=== PATIENT | female | born 1935 | race Caucasian/White ===

== ENCOUNTER 2018-05-07 12:16 | Emergency (ER) | payer OTHER ==
[2018-05-07 12:27] VITALS: BMI 17.7
[2018-05-07] MEDS ORDERED: FAMOTIDINE 20 MG/50 ML IVPB 20 MG/50 ML MG IVPB ONE ×2 (12:52→13:49)
[2018-05-07] MEDS ORDERED: ONDANSETRON 4 MG/2 ML VIAL IVPB ONE (12:52)
--- NOTE | 2018-05-07 13:10 | PDOC ---
History of Present Illness - General Chief Complaint: Nausea/Vomiting Stated Complaint: NAUSEA/VOMITING Time Seen by Provider: 05/07/18 12:31 - History of Present Illness Initial Comments: 05/07/18 13:06 82 F with h/o HTN, HLD presents to ED with N+V. Pt states that she awoke this morning feeling nauseous. Pt denies CP/SOB. Denies abdominal pain. Denies F/C. Pt states that on her way to the hospital, she vomited 3 times in the car. Denies any blood in her vomit. Pt denies diarrhea. Pt states that after vomiting , she feels much better. Currently denies any complaints. Past History - Past Medical History Allergies/Adverse Reactions: Allergies Allergy/AdvReac Type Severity Reaction Status Date / Time No Known Allergies Allergy Verified 04/11/15 21:12 Home Medications: Ambulatory Orders Amlodipine Besylate [Norvasc -] 10 mg PO DAILY 08/29/13 Atenolol [Tenormin -] 50 mg PO DAILY 08/29/13 Losartan Potassium [Cozaar] 50 mg PO DAILY 08/29/13 Naproxen [Naprosyn -] 500 mg PO BID #14 tablet 04/12/15 Cancer: Yes (COLON) COPD: No HTN: Yes - Surgical History GI Surgery: Yes (colon 14 yrs ago) - Immunization History Immunization Up to Date: Yes - Suicide/Smoking/Psychosocial Hx Smoking History: Never smoked Hx Alcohol Use: No Drug/Substance Use Hx: No Substance Use Type: None Review of Systems - Review of Systems Comments:: 05/07/18 13:07 "GENERAL/CONSTITUTIONAL: No fever or chills. No weakness. HEAD, EYES, EARS, NOSE AND THROAT: No change in vision. No ear pain or discharge. No sore throat. CARDIOVASCULAR: No chest pain or shortness of breath. RESPIRATORY: No cough, wheezing, or hemoptysis. GASTROINTESTINAL: + nausea, + vomiting, no diarrhea or constipation. GENITOURINARY: No dysuria, frequency, or change in urination. MUSCULOSKELETAL: No joint or muscle swelling or pain. No neck or back pain. SKIN: No rash NEUROLOGIC: No headache, vertigo, loss of consciousness, or change in strength/ sensation. ENDOCRINE: No increased thirst. No abnormal weight change. HEMATOLOGIC/LYMPHATIC: No anemia, easy bleeding, or history of blood clots. ALLERGIC/IMMUNOLOGIC: No hives or skin allergy. *Physical Exam - Vital Signs Last Vital Signs Temp Pulse Resp BP Pulse Ox 98.1 F 89 16 134/66 96 05/07/18 12:23 05/07/18 12:23 05/07/18 12:23 05/07/18 12:23 05/07/18 12:23 - Physical Exam Comments: 05/07/18 13:08 GENERAL: Awake, alert, and fully oriented, in no acute distress. HEAD: No signs of trauma EYES: PERRLA, EOMI, sclera anicteric, conjunctiva clear ENT: Auricles normal inspection, hearing grossly normal, nares patent, oropharynx clear without exudates. Moist mucosa NECK: Nontender, no stepoffs, Normal ROM, supple, no lymphadenopathy, JVD, or masses LUNGS: Breath sounds equal, clear to auscultation bilaterally. No wheezes, and no crackles HEART: Regular rate and rhythm, normal S1 and S2, no murmurs, rubs or gallops ABDOMEN: Soft, nontender, normoactive bowel sounds. No guarding, no rebound. No masses EXTREMITIES: Normal range of motion, no edema. No clubbing or cyanosis. No cords, erythema, or tenderness NEUROLOGICAL: Cranial nerves II through XII intact. 5/5 strength and sensation in all extremities, Normal speech, normal gait, normal cerebellar function SKIN: Warm, Dry, normal turgor, no rashes or lesions noted. Heart Score/ECG Review - History History: Slightly suspicious - Electrocardiogram EKG: Normal - Age Age: >/= 65 - Risk Factors Risk Factors Heart Score: Yes Hx Hypercholesterolemia, Yes Hx Hypertension Based on the list above the patient has:: 1-2 risk factors - Troponin Troponin: </= normal limit - Score Heart Score - Total: 3 - ECG Impressions Comment:: 05/07/18 15:10 NSR, no PEDRO/STDs, no TWIs, axis wnl, intervals wnl, rate 75 ED Treatment Course - LABORATORY CBC & Chemistry Diagram: 05/07/18 13:16 05/07/18 13:16 Medical Decision Making - Medical Decision Making 05/07/18 13:08 82 F with N+V, now resolved. Pt with benign abdomen and no abdominal pain, making acute intraabdominal process unlikely. Pt has no CP/SOB but will r/o ACS with serial trops. Suspect gastritis vs gastroenteritis. - Labs, trop - EKG - Pepcid/zofran 05/07/18 15:10 Labs wnl, trop negative x1 Pt continues to feel well. 05/07/18 17:21 Trop negative x2 Repeat exam normal, no abdominal tenderness. Pt is well appearing, with normal vitals. Clinically stable for DC at this time. I discussed the physical exam findings, ancillary test results and final diagnoses with the patient. I answered all of the patient's questions. The patient was satisfied with the care received and felt comfortable with the discharge plan and treatment plan. The patient agrees to follow up with the primary care physician within 24-72 hours. *DC/Admit/Observation/Transfer Diagnosis at time of Disposition: Nausea and vomiting - Discharge Dispostion Disposition: HOME Condition at time of disposition: Stable - Referrals Referrals: Twila Ballard MD [Primary Care Provider] - - Patient Instructions Printed Discharge Instructions: DI for Nausea -- Adult, DI for Vomiting -- Adult Additional Instructions: Your labwork and EKG today were normal. However, you should still follow up with your primary doctor for further evaluation. Make an appointment within 1 week. If you experience recurrent nausea, vomiting, abdominal pain, chest pain, shortness of breath, or any other concerning symptoms, return to the ER immediately. - Post Discharge Activity - Attestations Physician Attestion: 05/07/18 16:56 I, Dr. Adrian Estevez MD, attest that this document has been prepared under my direction and personally reviewed by me in its entirety. I further attest, that it accurately reflects all work, treatment, procedures and medical decision -making performed by me.
[2018-05-07] MEDS ORDERED: ONDANSETRON 4 MG/2 ML VIAL ONE (13:17)
[2018-05-07 13:26] LABS: BASO % 0.3 % (0-2.0); HEMATOCRIT 40.6 % (32.4-45.2); HEMOGLOBIN 13.7 GM/dL (10.7-15.3); LYMPH % 6.1 % (8-40); MCHC 33.7 g/dl (32.0-36.0); MEAN CELL VOLUME 86.1 fl (80-96); MEAN PLT VOLUME 10.3 fl (7.5-11.1); MONO % 4.2 % (3.8-10.2); NEUT % 89.4 % (42.8-82.8); PLATELET COUNT 223 K/MM3 (134-434); RBC 4.71 M/mm3 (3.60-5.2); RDW 13.8 % (11.6-15.6); WHITE BLOOD COUNT 8.1 K/mm3 (4.0-10.0)
[2018-05-07 14:02] LABS: ALBUMIN 3.9 g/dl (3.4-5.0); ANION GAP 11 MMOL/L (8-16); BLOOD UREA NITROGEN 22 mg/dL (7-18); CALCIUM 9.6 mg/dL (8.5-10.1); CHLORIDE 99 mmol/L (98-107); CO2 30 mmol/L (21-32); CREATININE 0.7 mg/dL (0.55-1.3); GLUCOSE,RANDOM 125 mg/dL (74-106); LIPASE 130 U/L (73-393); POTASSIUM 3.7 mmol/L (3.5-5.1); SGOT/AST 13 U/L (15-37); SGPT/ALT 24 U/L (13-61); SODIUM 140 mmol/L (136-145); TOT PROT 6.9 g/dl (6.4-8.2)
[2018-05-07 14:07] LABS: ALK PHOS 68 U/L (45-117); BILIRUBIN,TOTAL 0.6 mg/dL (0.2-1)
--- NOTE | 2018-05-07 16:15 | EKG ---
Test Reason : Blood Pressure : / mmHG Vent. Rate : 074 BPM Atrial Rate : 074 BPM P-R Int : 124 ms QRS Dur : 090 ms QT Int : 440 ms P-R-T Axes : 050 030 070 degrees QTc Int : 488 ms POOR DATA QUALITY, INTERPRETATION MAY BE ADVERSELY AFFECTED NORMAL SINUS RHYTHM NONSPECIFIC ST ABNORMALITY ABNORMAL ECG WHEN COMPARED WITH ECG OF 14-NOV-2014 09:28, NO SIGNIFICANT CHANGE WAS FOUND Confirmed by Benigno Sandoval ([id number]) on 05/07/2018 4:15:22 PM Referred By: Confirmed By:Benigno Sandoval
[2018-05-07 17:09] VITALS: BP 127/64; PULSE 77; TEMP 98.6
== END 2018-05-07 17:31 | disposition home or self-care (01) ==
LOC: JER 12:16
PROC: 3E033GC Introduction of Other Therapeutic Substance into Peripheral Vein, Percutaneous Approach (ICD-10-PCS; principal; 2018-05-07)
DX: R11.2 Nausea with vomiting, unspecified (principal)
CPT/HCPCS: 36415; 80053; 82550; 83690; 84484; 85025; 93005; 93010; 96365; 96375; 99282-25

== ENCOUNTER 2024-10-14 15:28 | Inpatient (IN) | payer OTHER ==
[2024-10-14 16:43] VITALS: BMI 17.2
[2024-10-14] MEDS ORDERED: ACETAMINOPHEN 325 MG TABLET (FP) ONE (16:44)
[2024-10-14] MEDS: ACETAMINOPHEN 500 MG TABLET (FP) PO ONE (16:49)
[2024-10-14 17:14] LABS: HEMATOCRIT 41.9 % (32.4-45.2); HEMOGLOBIN 13.5 GM/dL (10.7-15.3); MCH 27.9 pg (25.7-33.7); MCHC 32.3 g/dl (32.0-36.0); MEAN CELL VOLUME 86.5 fl (80-96); MEAN PLT VOLUME 9.8 fl (7.5-11.1); PLATELET COUNT 231 10^3/uL (134-434); RBC 4.84 M/mm3 (3.60-5.2); RDW 14.4 % (11.6-15.6); WHITE BLOOD COUNT 15.1 K/mm3 (4.0-10.0)
[2024-10-14 17:22] LABS: INR 1.12 (0.83-1.09); PROTHROMBIN TIME (PATIENT) 12.2 SEC (9.7-13.0)
[2024-10-14 17:24] LABS: ACTIVATED PTT 31.2 SECONDS (25.2-36.5)
[2024-10-14 17:34] LABS: ALBUMIN 3.9 g/dl (3.4-5.0); BLOOD UREA NITROGEN 20.5 mg/dL (7-18)
[2024-10-14 17:37] LABS: CREATININE 0.6 mg/dL (0.55-1.3)
[2024-10-14 17:38] LABS: BILIRUBIN,TOTAL 0.6 mg/dL (0.2-1)
[2024-10-14] MEDS: ROPIVACAINE HCL 0.5% 30ML VIAL NR ONE (19:05)
[2024-10-14] MEDS ORDERED: DIPHTH,PERTUSS(ACELL),TET 0.5 ML DISP.SYRIN IM ONE (19:10)
[2024-10-14] MEDS: DIPHTH,PERTUSS(ACELL),TET 0.5 ML DISP.SYRIN IM ONE (19:21)
[2024-10-14] MEDS ORDERED: MORPHINE SULFATE 2 MG/ML SYRINGE IVPUSH PRN (20:26)
[2024-10-14] MEDS: LACTATED RINGERS SOLUTION 1,000 ML/1,000 ML INFUS.BAG IV SCH (22:31)
[2024-10-14] MEDS: DEXTROSE 5%-NORMAL SALINE 1,000 ML IV SCH (23:56)
[2024-10-15] MEDS: amLODIPine BESYLATE 10 MG TABLET (FP) PO SCH (09:11)
[2024-10-15] MEDS: ACETAMINOPHEN 1000 MG/100 ML BAG IVPB PRN (09:11)
[2024-10-15] MEDS: LOSARTAN POTASSIUM 50 MG TABLET PO SCH (09:11)
[2024-10-15] MEDS ORDERED: ONDANSETRON 4 MG/2 ML VIAL IVPUSH PRN ×2 (09:47→13:31)
[2024-10-15 09:55] LABS: HEMATOCRIT 38.9 % (32.4-45.2); HEMOGLOBIN 13.2 GM/dL (10.7-15.3); MCHC 33.9 g/dl (32.0-36.0); MEAN CELL VOLUME 85.5 fl (80-96); MEAN PLT VOLUME 9.9 fl (7.5-11.1); PLATELET COUNT 225 10^3/uL (134-434); RBC 4.55 M/mm3 (3.60-5.2); WHITE BLOOD COUNT 10.1 K/mm3 (4.0-10.0)
[2024-10-15 10:00] LABS: INR 1.25 (0.83-1.09); PROTHROMBIN TIME (PATIENT) 13.8 SEC (9.7-13.0)
[2024-10-15] MEDS ORDERED: ceFAZolin SODIUM 1 GM VIAL ONE ×2 (10:10→13:13)
[2024-10-15 10:30] LABS: POTASSIUM 3.6 mmol/L (3.5-5.1)
[2024-10-15 10:33] LABS: ALBUMIN 3.5 g/dl (3.4-5.0); BLOOD UREA NITROGEN 13.5 mg/dL (7-18); CALCIUM 8.7 mg/dL (8.5-10.1)
[2024-10-15 10:37] LABS: CREATININE 0.6 mg/dL (0.55-1.3)
[2024-10-15 10:38] LABS: BILIRUBIN,TOTAL 0.9 mg/dL (0.2-1); TOT PROT 6.5 g/dl (6.4-8.2)
[2024-10-15] MEDS ORDERED: VANCOMYCIN 1,000 MG VIAL (RESTRICTED TO ID ONLY) ONE (10:56)
[2024-10-15] MEDS ORDERED: BUPIVACAINE HCL/PF 0.5% (5MG/ML) 10 ML VIAL ONE (11:56)
[2024-10-15] MEDS ORDERED: PROPOFOL 20 ML ONE (11:56)
[2024-10-15] MEDS: ceFAZolin SODIUM 1 GM VIAL IVPB ONE (12:27)
[2024-10-15] MEDS ORDERED: TRANEXAMIC ACID 1000 MG/10 ML VIAL ONE (13:13)
[2024-10-15] MEDS ORDERED: DEXTROSE 5%-NORMAL SALINE 1,000 ML IV SCH (13:31)
[2024-10-15] MEDS ORDERED: ACETAMINOPHEN 1000 MG/100 ML BAG IVPB PRN (13:31)
[2024-10-15] MEDS ORDERED: ONDANSETRON 4 MG/2 ML VIAL ONE (13:41)
[2024-10-15] MEDS: ONDANSETRON 4 MG/2 ML VIAL IVPUSH PRN (13:42)
[2024-10-15] MEDS: LACTATED RINGERS SOLUTION 1,000 ML IV SCH (16:18)
[2024-10-15] MEDS ORDERED: CEFAZOLIN SODIUM 2 GM in DEXTROSE 5%-WATER 100 ML IVPB SCH (20:00)
[2024-10-15] MEDS ORDERED: CEFAZOLIN 2 GM/D5W 2 GM/50 ML ML IVPB SCH (20:00)
[2024-10-15] MEDS: CEFAZOLIN 2 GM/D5W 2 GM/50 ML ML IVPB SCH (20:13)
[2024-10-15] MEDS: SENNOSIDES/DOCUSATE COMBO (SENNA PLUS) TABLET (UD) PO SCH (21:48)
[2024-10-15] MEDS ORDERED: SENNOSIDES/DOCUSATE COMBO (SENNA PLUS) TABLET (UD) PO SCH (22:00)
[2024-10-15 22:01] VITALS: RESP 18
[2024-10-16] MEDS ORDERED: ASPIRIN 325 MG TABLET PO SCH (08:00)
[2024-10-16] MEDS: VALSARTAN 40 MG TABLET PO SCH (09:24)
[2024-10-16] MEDS: PANTOPRAZOLE 40 MG TABLET PO SCH (09:24)
[2024-10-16] MEDS: ASPIRIN 325 MG TABLET PO SCH (09:24)
[2024-10-16] MEDS: amLODIPine BESYLATE 10 MG TABLET (FP) PO SCH (09:24)
[2024-10-16] MEDS ORDERED: LOSARTAN POTASSIUM 50 MG TABLET PO SCH (10:00)
[2024-10-16] MEDS ORDERED: PANTOPRAZOLE 40 MG TABLET PO SCH (10:00)
[2024-10-16 10:11] LABS: HEMATOCRIT 35.8 % (32.4-45.2); HEMOGLOBIN 12.1 GM/dL (10.7-15.3); MCH 28.9 pg (25.7-33.7); MCHC 33.9 g/dl (32.0-36.0); MEAN CELL VOLUME 85.3 fl (80-96); MEAN PLT VOLUME 10.4 fl (7.5-11.1); PLATELET COUNT 211 10^3/uL (134-434); RDW 14.3 % (11.6-15.6); WHITE BLOOD COUNT 11.9 K/mm3 (4.0-10.0)
[2024-10-16 12:05] LABS: POTASSIUM 3.9 mmol/L (3.5-5.1)
[2024-10-16 12:21] LABS: CALCIUM 8.8 mg/dL (8.5-10.1)
[2024-10-16 12:22] LABS: BLOOD UREA NITROGEN 17.5 mg/dL (7-18)
[2024-10-16 12:25] LABS: CREATININE 1.4 mg/dL (0.55-1.3)
[2024-10-16] MEDS: POLYETHYLENE GLYCOL (HEALTHYLAX) 3350 17 GM PACKET PO SCH (17:45)
[2024-10-16] MEDS ORDERED: ACETAMINOPHEN 325 MG TABLET (FP) PO PRN (18:44)
[2024-10-16] MEDS ORDERED: SODIUM CHLORIDE 1,000 ML IV SCH (19:00)
[2024-10-16] MEDS: SODIUM CHLORIDE 1,000 ML IV SCH (22:44)
[2024-10-17] MEDS: SODIUM CHLORIDE 1,000 ML IV SCH (08:53)
[2024-10-17 10:18] LABS: HEMATOCRIT 35.9 % (32.4-45.2); HEMOGLOBIN 12.1 GM/dL (10.7-15.3); MCH 28.8 pg (25.7-33.7); MCHC 33.8 g/dl (32.0-36.0); MEAN CELL VOLUME 85.3 fl (80-96); MEAN PLT VOLUME 10.4 fl (7.5-11.1); PLATELET COUNT 192 10^3/uL (134-434); RDW 14.5 % (11.6-15.6); WHITE BLOOD COUNT 11.5 K/mm3 (4.0-10.0)
[2024-10-17 10:41] LABS: BLOOD UREA NITROGEN 27.5 mg/dL (7-18); CALCIUM 8.8 mg/dL (8.5-10.1)
[2024-10-17 10:44] LABS: CREATININE 1.6 mg/dL (0.55-1.3)
[2024-10-17] MEDS: BISACODYL 10 MG SUPP.RECT PR ONE (12:34)
[2024-10-17 13:35] LABS: PH,URINE 6.5 (5.0-8.0); URINE APPEARANCE CLEAR; URINE BILIRUBIN NEGATIVE (NEGATIVE); URINE COLOR YELLOW; URINE GLUCOSE (UA) TRACE (NEGATIVE); URINE KETONE NEGATIVE (NEGATIVE); URINE LEUK ESTERASE NEGATIVE (NEGATIVE); URINE NITRITE NEGATIVE (NEGATIVE); URINE PROTEIN NEGATIVE (NEGATIVE); URINE UROBILINOGEN 0.2 mg/dL (0.2-1.0)
[2024-10-17] MEDS: SODIUM CHLORIDE 0.45% 1,000 ML IV SCH (19:00)
[2024-10-17] MEDS: ACETAMINOPHEN 325 MG TABLET (FP) PO PRN (19:54)
[2024-10-17] MEDS: HEPARIN NA (PORCINE) 5,000 UNITS/ML 1ML VIAL SQ SCH (21:17)
[2024-10-18 09:29] LABS: HEMATOCRIT 32.2 % (32.4-45.2); HEMOGLOBIN 10.7 GM/dL (10.7-15.3); MCH 28.7 pg (25.7-33.7); MCHC 33.1 g/dl (32.0-36.0); MEAN CELL VOLUME 86.6 fl (80-96); MEAN PLT VOLUME 10.2 fl (7.5-11.1); PLATELET COUNT 199 10^3/uL (134-434); RBC 3.72 M/mm3 (3.60-5.2); RDW 14.5 % (11.6-15.6); WHITE BLOOD COUNT 9.2 K/mm3 (4.0-10.0)
[2024-10-18 09:57] LABS: POTASSIUM 3.4 mmol/L (3.5-5.1)
[2024-10-18 10:05] LABS: BLOOD UREA NITROGEN 17.8 mg/dL (7-18)
[2024-10-18 10:08] LABS: CREATININE 0.5 mg/dL (0.55-1.3)
[2024-10-18 11:05] LABS: CALCIUM 8.2 mg/dL (8.5-10.1)
[2024-10-18] MEDS: POTASSIUM CHLORIDE ORAL LIQUID 20 MEQ/15 ML PO ONE (11:15)
[2024-10-18 17:11] VITALS: BP 130/60; PULSE 78; TEMP 97.8
== END 2024-10-18 19:22 | DRG 522 ==
LOC: JER 15:28 → JERBED 18:17 → J6S 20:44
PROVIDERS: ADMIT Student in an Organized Health Care Education/Training Program; ATTEND Internal Medicine
PROC: 0SRR0JZ Replacement of Right Hip Joint, Femoral Surface with Synthetic Substitute, Open Approach (ICD-10-PCS; principal; 2024-10-15 12:00)
DX: S72.001A Fracture of unspecified part of neck of right femur, initial encounter for closed fracture (principal); N17.9 Acute kidney failure, unspecified; W17.89XA Other fall from one level to another, initial encounter; I10 Essential (primary) hypertension; K59.00 Constipation, unspecified; R33.9 Retention of urine, unspecified; Y92.098 Other place in other non-institutional residence as the place of occurrence of the external cause; Y99.9 Unspecified external cause status; Z85.038 Personal history of other malignant neoplasm of large intestine
CPT/HCPCS: 36415; 70450-TC; 71045-TC-FY; 72125-TC; 72170-TC-FY; 73502-TC-RT-FY; 73552-TC-RT-FY; 80048; 80053; 81003; 82570; 84300; 85025; 85027; 85610; 85730; 86850; 86900; 86901; 88305-TC; 88311-TC; 88342-TC; 90715; 93005; 93010; 93306-TC; 94010; 94760; 97116-GP; 97162-GP; 99285-25; C1776; J0131; J1644